=== PATIENT | male | born 1960 | race Caucasian/White ===

== ENCOUNTER 2025-03-04 09:00 | Inpatient (IN) ==
[2025-02-19 09:27] LABS: Basophils # (Auto) 0.03 K/mcL (0.00-0.30); Basophils % (Auto) 0.5 % (0.0-2.0); Eosinophils # (Auto) 0.18 K/mcL (0.00-0.70); Eosinophils % (Auto) 3.1 % (0.0-7.0); Hematocrit 39.9 % (40.1-51.0); Hemoglobin 13.5 g/dL (13.7-17.5); Lymphocytes # (Auto) 1.69 K/mcL (1.50-4.80); Lymphocytes % (Auto) 28.9 % (15.5-49.0); Mean Corpuscular HGB Conc 33.8 g/dL (31.0-36.0); Monocytes # (Auto) 0.65 K/mcL (0.10-0.90); Monocytes % (Auto) 11.1 % (1.0-12.0); Neutrophils % (Auto) 56.1 % (38.0-78.0); Platelet Count 198 K/mcL (140-440); RBC 4.16 M/mcL (4.63-6.08); WBC 5.8 K/mcL (4.5-11.0)
[2025-02-19 09:42] LABS: ALT/SGPT 16 U/L (<40); AST/SGOT 18 U/L (<40); Albumin 4.1 gm/dL (3.2-5.2); Albumin/Globulin Ratio 1.7 (1.0-2.3); Alkaline Phosphatase 82 U/L (39-117); Anion Gap 12.0 (8.0-16.0); Bilirubin,Total 0.4 mg/dL (0.1-1.0); Blood Urea Nitrogen 9 mg/dL (8-23); Calcium 9.0 mg/dL (8.6-10.4); Carbon Dioxide 22 mmol/L (22-30); Chloride 102 mmol/L (96-108); Globulin 2.4 gm/dL (2.2-3.7); Glucose 120 mg/dL (70-105); Potassium 4.0 mmol/L (3.3-5.1); Sodium 136 mmol/L (133-145)
[2025-02-19 09:43] LABS: C-Reactive Protein 0.59 mg/dL (0.03-0.80)
[2025-02-19 11:41] LABS: Estimated Average Glucose(eAG) 117 mg/dL; Hemoglobin A1C 5.7 % Hgb (4.0-6.0)
[2025-02-19 11:48] LABS: Bilirubin,Urine Negative (Negative); Color,Urine AMBER; Glucose,Urine (UA) Negative (Negative); Ketones,Urine Negative (Negative); Leukocyte Esterase,Urine Negative /uL (Negative); Mucus,Urine MANY /hpf; PH,Urine 5.0 (5.0-9.0); Protein,Urine 30 mg/dL (Negative); Specific Gravity,Urine 1.029 (1.000-1.035); Urobilinogen,Urine Negative
[2025-03-04] MEDS ORDERED: FAMOTIDINE/PF 20 MG/2 ML VIAL IV ONE (09:49)
[2025-03-04] MEDS ORDERED: PROPOFOL 200 MG/20 ML VIAL IV ONE (09:50)
[2025-03-04] MEDS ORDERED: DEXAMETHASONE 10 MG/ML VIAL ONE (09:50)
[2025-03-04] MEDS ORDERED: TRANEXAMIC ACID 1,000 MG/10 ML VIAL ONE (09:50)
[2025-03-04] MEDS ORDERED: ROCURONIUM 10 MG/ML ML IV ONE (09:50)
[2025-03-04] MEDS ORDERED: LIDOCAINE 2% PF 5 ML VIAL ONE (09:50)
[2025-03-04] MEDS ORDERED: ONDANSETRON 4 MG/2 ML VIAL ONE (09:50)
[2025-03-04] MEDS ORDERED: MIDAZOLAM 2 MG/2 ML VIAL ONE (11:08)
[2025-03-04] MEDS ORDERED: fentaNYL 100 MCG/2 ML VIAL ONE (11:08)
[2025-03-04] MEDS: ceFAZolin 2 GM in DEXTROSE 5% IN WATER 50 ML IV SCH (11:32)
[2025-03-04] MEDS ORDERED: GLYCOPYRROLATE 0.2 MG/ML VIAL IV ONE ×2 (12:31→12:37)
[2025-03-04] MEDS ORDERED: PHENYLephrine 1 MG/10 ML SYRINGE (ANEST) ONE (12:31)
[2025-03-04] MEDS ORDERED: SUGAMMADEX SODIUM 200 MG/2 ML VIAL IV ONE (12:38)
[2025-03-04] MEDS ORDERED: ePHEDrine 50 MG/5 ML SYRINGE (ANEST) IV ONE (12:47)
[2025-03-04] MEDS ORDERED: MAGNESIUM SULFATE 2 GM/50 ML BAG IV ONE (13:00)
[2025-03-04] MEDS ORDERED: IPRATROPIUM/ALBUTEROL 3 ML AMPUL.NEB NEB PRN (13:19)
[2025-03-04] MEDS ORDERED: ONDANSETRON 4 MG/2 ML VIAL IV PRN ×2 (13:19→13:24)
[2025-03-04] MEDS ORDERED: HYDROmorphone 0.5 MG/0.5 ML SYRINGE IV PRN (13:19)
[2025-03-04] MEDS ORDERED: POLYETHYLENE GLYCOL 3350 17 GM PACKET PO PRN (13:24)
[2025-03-04] MEDS ORDERED: MAGNESIUM HYDROXIDE 30 ML ORAL.SUSP PO PRN (13:24)
[2025-03-04] MEDS ORDERED: BISACODYL 10 MG SUPP.RECT PR PRN (13:24)
[2025-03-04] MEDS ORDERED: FLEETS ADULT 1 DOSE ENEMA PR PRN (13:24)
[2025-03-04] MEDS ORDERED: ACETAMINOPHEN 325 MG TABLET PO PRN (13:24)
[2025-03-04] MEDS ORDERED: BENZOCAINE/MENTHOL 1 LOZENGE PO PRN (13:24)
[2025-03-04] MEDS ORDERED: BACLOFEN 10 MG TABLET PO PRN (13:31)
[2025-03-04] MEDS ORDERED: NITROGLYCERIN 0.4 MG TAB.SUBL SL PRN (13:32)
[2025-03-04] MEDS: TRANEXAMIC ACID 1,000 MG/10 ML VIAL IV SCH (14:20)
[2025-03-04] MEDS: METHOCARBAMOL 1,000 MG/10 ML VIAL IV PRN (14:20)
[2025-03-04] MEDS: CELECOXIB 200 MG CAPSULE PO SCH (14:57)
[2025-03-04] MEDS: PREGABALIN 75 MG CAPSULE PO SCH (14:57)
[2025-03-04] MEDS: oxyCODONE 10 MG TAB.ER.12H PO SCH (14:57)
[2025-03-04] MEDS: 0.9 % SODIUM CHLORIDE 10 ML SYRINGE IV SCH (15:10)
[2025-03-04] MEDS: 0.9 % SODIUM CHLORIDE 1,000 ML IV SCH (15:11)
[2025-03-04] MEDS: KETOROLAC 30 MG/ML VIAL IV PRN (15:15)
[2025-03-04] MEDS: LORazepam 2 MG/ML VIAL IV ONE (16:46)
[2025-03-04] MEDS: DOCUSATE SODIUM 100 MG CAPSULE PO SCH (19:46)
[2025-03-04] MEDS: SENNOSIDES 1 TABLET PO SCH (19:46)
[2025-03-05 08:00] VITALS: TEMP 97.2; O2SAT 98
[2025-03-05] MEDS: ESCITALOPRAM 20 MG TABLET PO SCH (09:09)
[2025-03-05] MEDS: ATORVASTATIN 40 MG TABLET PO SCH (09:09)
[2025-03-05] MEDS: SPIRONOLACTONE 25 MG TABLET PO SCH (09:09)
== END 2025-03-05 09:28 | disposition home or self-care (01) | DRG 483 ==
LOC: MEDSUR 09:00 → EDSTATUS 14:05
PROVIDERS: ADMIT Orthopaedic Surgery; ATTEND Orthopaedic Surgery